=== PATIENT | female | born 1960 | race Caucasian/White ===

== ENCOUNTER → 2018-10-09 | Outpatient (CLI) | payer MEDICARE ==
[2018-10-09 12:09] LABS: Source, Urine Catheter
[2018-10-09 12:19] LABS: Bilirubin, Urine Neg (Neg); Blood, Urine Neg (Neg); Glucose Qualitative, Urine 4+ (Neg); Ketones, Urine Neg (Neg); Leukocyte Esterase, Urine Neg (Neg); Nitrite, Urine Neg (Neg); Protein, Urine 1+ (Neg); Urobilinogen, Urine NORM (Normal)
[2018-10-09 12:34] LABS: Appearance, Urine Clear (Clear); Color, Urine Yellow (P-Yellow)
[2018-10-13 15:06] LABS: HPV 16 Negative (Negative); HPV 18 Negative (Negative); HPV OTHER HR TYPES Negative (Negative)
== END | disposition home or self-care (01) ==
LOC: LAB 12:08 → LAB SHORT 12:08
PROVIDERS: Nurse Practitioner Women's Health
DX: R30.0 Dysuria (principal); Z80.52 Family history of malignant neoplasm of bladder; Z91.89 Other specified personal risk factors, not elsewhere classified
CPT/HCPCS: 87624; G0123

== ENCOUNTER → 2020-01-26 | Outpatient (CLI) | payer MEDICARE ==
[~2020-01-26] MED LIST: ASPIR 8181 M1 PO; CLOP75 PO; GABA300 PO; HYDROCODONE-AC1 EAC8 PO; NEURONTIN300 MG PO; PIOGLITAZONE HC45 MG PO; SULFAMETHOXAZO1 EAC1 PO
== END ==
LOC: LAB 18:14 → LAB SHORT 18:14
DX: N39.0 Urinary tract infection, site not specified (principal)
CPT/HCPCS: 87077; 87086; 87186

== ENCOUNTER 2020-01-28 16:04 | Inpatient (IN) | payer MEDICARE ==
[~2020-01-28] VITALS: Ht 160 cm; Wt 59.2 kg
[~2020-01-28 16:04] MED LIST changes: -HYDROCODONE-AC1 EAC8 PO; -NEURONTIN300 MG PO; -SULFAMETHOXAZO1 EAC1 PO
[2020-01-28 16:39] LABS: BASOPHILS ABSOLUTE AUTO 0.05 K/mm3 (0.00-0.23); BASOPHILS PERCENT AUTO 1 % (0-2); EOSINOPHILS ABSOLUTE AUTO 0.25 K/mm3 (0.00-0.68); EOSINOPHILS PERCENT AUTO 2 % (0-6); Hematocrit 45.6 % (33.0-51.0); Hemoglobin 14.9 g/dL (11.5-16.0); IMMATURE GRAN ABSOLUTE AUTO 0.05 K/mm3 (0.00-0.10); IMMATURE GRAN PERCENT AUTO 1 % (0-1); LYMPHOCYTES ABSOLUTE AUTO 2.49 K/mm3 (0.84-5.20); LYMPHOCYTES PERCENT AUTO 23 % (21-46); MONOCYTES ABSOLUTE AUTO 1.08 K/mm3 (0.16-1.47); MONOCYTES PERCENT AUTO 10 % (4-13); Mean Corpuscular HGB 30.7 pg (26.0-34.0); Mean Corpuscular HGB Conc 32.7 g/dL (31.5-36.5); Mean Corpuscular Volume 94 fL (80-100); Mean Platelet Volume 9.3 fL (9.1-12.4); NEUTROPHILS ABSOLUTE AUTO 6.78 K/mm3 (1.96-9.15); NEUTROPHILS PERCENT AUTO 63 % (41-73); Platelet Count 463 K/mm3 (150-400); RDW Coefficient Variation 12.5 % (11.7-14.2); RDW Standard Deviation 43.5 fL (35.1-46.3); Red Blood Cell Count 4.86 M/mm3 (3.80-5.20)
[2020-01-28 16:58] LABS: Alanine Aminotransfer (ALT/SGP 20 U/L (12-78); Albumin, Blood 3.2 g/dL (3.4-5.0); Albumin/Globulin Ratio 0.7 (0.8-1.8); Alk Phos 156 U/L (50-136); Anion Gap 6 mmol/L (6-16); Aspartate Aminotrans (AST/SGOT 11 U/L (12-37); Bilirubin, Total 0.2 mg/dL (0.1-1.0); Blood Urea Nitrogen 16 mg/dL (8-24); Bun/Creatinine Ratio 21.4 (12.0-20.0); CO2, Blood 27 mmol/L (21-32); Calcium, Blood 9.1 mg/dL (8.5-10.1); Chloride, Blood 104 mmol/L (98-108); Creatinine, Blood 0.75 mg/dL (0.40-1.00); Globulin, Blood 4.4 g/dL (2.2-4.0); Glomerular Filtration Rate >60 (60-); Glucose, Blood 200 mg/dL (70-99); Potassium, Blood 4.1 mmol/L (3.5-5.5); Sodium, Blood 137 mmol/L (136-145); Total Protein, Blood 7.6 g/dL (6.4-8.2)
[2020-01-28] MEDS ORDERED: NEURONTIN300 MG PO (20:55)
[2020-01-28] MEDS ORDERED: HYDROCODONE-AC1 EAC8 PO (20:55)
[2020-01-28] MEDS ORDERED: SULFAMETHOXAZO1 EAC1 PO (21:16)
--- NOTE | 2020-01-29 04:13 | NUR ---
SHIFT SUMMARY RECIEVED REPORT FROM [facility] @ 9155; ORIGINALLY CALLED FOR REPORT @ 2222. ARRIVED TO MEDICAL UNIT VIA WHEELCHAIR @ 2312; NO ASSISTANCE NEEDED UPON TRANSFER TO BED. ORIENTED TO ROOM AND CALL SYSTEM. A/O, ABLE TO MAKE NEEDS KNOWN. COOPERATIVE WITH CARE. ANSWERS QUESTIONS APPROPRIATELY. PICTURES TAKEN OF GANGRENOUS R GREAT TOE; PLACED IN CHART. NPO AFTER MIDNIGHT; AWARE OF SX IN AM. IV FLUIDS STARTED WITHOUT COMPLICATION. APPEARED TO REST MUCH WELL AFTER ADMISSION PROCESS COMPLETE. NO ACUTE CHANGES NOTED. VSS/AFEBRILE. BED REMAINED IN LOWEST POSITION. CALL LIGHT AND BELONGINGS WITHIN REACH. WCTM. REPORT TO ONCCOY BANG.
[2020-01-29 04:57] LABS: BASOPHILS ABSOLUTE AUTO 0.05 K/mm3 (0.00-0.23); BASOPHILS PERCENT AUTO 1 % (0-2); EOSINOPHILS ABSOLUTE AUTO 0.29 K/mm3 (0.00-0.68); EOSINOPHILS PERCENT AUTO 3 % (0-6); IMMATURE GRAN ABSOLUTE AUTO 0.04 K/mm3 (0.00-0.10); IMMATURE GRAN PERCENT AUTO 0 % (0-1); LYMPHOCYTES ABSOLUTE AUTO 2.55 K/mm3 (0.84-5.20); LYMPHOCYTES PERCENT AUTO 29 % (21-46); MONOCYTES PERCENT AUTO 10 % (4-13); Mean Corpuscular HGB 30.2 pg (26.0-34.0); Mean Corpuscular HGB Conc 31.8 g/dL (31.5-36.5); Mean Corpuscular Volume 95 fL (80-100); Mean Platelet Volume 9.5 fL (9.1-12.4); NEUTROPHILS ABSOLUTE AUTO 5.08 K/mm3 (1.96-9.15); NEUTROPHILS PERCENT AUTO 57 % (41-73); Platelet Count 402 K/mm3 (150-400); RDW Coefficient Variation 12.5 % (11.7-14.2); RDW Standard Deviation 43.7 fL (35.1-46.3); Red Blood Cell Count 4.63 M/mm3 (3.80-5.20); White Blood Cell Count 8.91 K/mm3 (4.00-11.30)
[2020-01-29 05:13] LABS: International Normalized Ratio 0.94; Prothrombin Time Results 10.1 Sec (9.7-11.5)
[2020-01-29 05:31] LABS: Anion Gap 6 mmol/L (6-16); Blood Urea Nitrogen 18 mg/dL (8-24); Bun/Creatinine Ratio 24.1 (12.0-20.0); CO2, Blood 25 mmol/L (21-32); Calcium, Blood 8.5 mg/dL (8.5-10.1); Chloride, Blood 106 mmol/L (98-108); Creatinine, Blood 0.75 mg/dL (0.40-1.00); Glomerular Filtration Rate >60 (60-); Glucose, Blood 178 mg/dL (70-99); Potassium, Blood 4.2 mmol/L (3.5-5.5); Sodium, Blood 137 mmol/L (136-145)
--- NOTE | 2020-01-29 07:05 | NUR ---
ASSUMED CARE OF PT- BEDSIDE REPORT COMPLETED WITH NIGHT RN. PT ALERT AND ORIENTED WITH A Hx OF A BRAIN BLEED D/T A RUPTURED ANURISIM, PT HAS CLIPS FROM THE REPAIR. PT HAS RIGHT GREATER TOE GANGREEN AND IS GOING TO SURGERY FOR AMPUTATION TODAY. RIGHT GREATER TOE IS BLACK AND PAINFUL TO TOUCH. PT STATES SHE HAS DIABETIC NEUROPATHY WITH N/T TO BLE. PT HAS NO C/O PAIN THIS MORNING PAIN WELL MANAGED WITH NORCO FROM LAST NIGHT.
--- NOTE | 2020-01-29 09:42 | NUR ---
PT SON WANTS DR TO BE AWARE THAT THE PT HAS BEEN EXPERIENCING INTERMITTENT BLURRED VISION FOR THE PAST ONE TO 2 MONTHS THAT HE IS AWARE OF. SON STATES THAT THEY GO "[place] [employer]" AND THE PT OCCASSIONALLY WILL SEE 4-5 SITESWHEN HE IS TRYING TO [employer]. THIS IS CONCERNING TO THEM GIVEN THE PT FATHER HAD BRAIN CANCER AND THE PT HAS A Hx OF LYMPHOMA. THE FAMILY IS REQUESTING A HEAD CT.
--- NOTE | 2020-01-29 10:32 | NUR ---
PT TO DAY SURGERY FOR SURGERY W/DR HARRINGTON. Pre-Op teaching done. Pt verbalizes understanding.
--- NOTE | 2020-01-29 13:06 | NUR ---
01/29/20 1306 [place] VERIFICATIONS: EDIT CHART.
--- NOTE | 2020-01-29 15:45 | NUR ---
PT STARTING TO FEEL SOME DULL PAIN AT THE SURGICAL SITE. ALL POST OP VITALS HAVE A SBP LESS THAN 100. NORCO WORKED WELL FOR THE PT PRIOR TO SURGERY. PT STATED AT HOME SHE CAN TAKE IT UP TO 3 TIMES DAILY SHE USUALLY CHOOSES TO SAVE IT FOR BEDTIME IT MAKES HER SLEEPY. CALLED DR KIRAN TO SEE IF THE NORCO ORDERED AT BEDTIME PRN CAN BE CHANGED TO TID NEEDED FOR PAIN. AWAITING A CALL BACK.
--- NOTE | 2020-01-29 16:39 | NUR ---
SPOKE TO DR KIRAN- PT HUMILIN CHANGED TO AC RATHER THAN AC/HS. PT IS VERY HUNGRY AND IS EXCITED FOR DINNER. DR VISITED BEDSIDE PAIN MEDICATION CHANGED TO TID NEEDED FOR PAIN AND PT WAS MEDICATED SOON MED WAS AVAILABLE
--- NOTE | 2020-01-29 17:47 | NUR ---
SHIFT SUMMARY- PT HAS HAD LOW SBP SINCE THE PROCEDURE. DR OLIVAS IS AWARE. PO PAIN MANAGEMENT GIVEN SEEMS TO WORK WELL FOR THE PT. SHE STATES SHE DRIFTS OFF TO SLEEP AND THEN SHE WAKES TO A SHARP PAIN, THAT GOES AWAY A SECOND LATER. PT IS ON POST OP VITALS UP TO Q4 HOURS AT THIS TIME. PT IS A SBA FOR TRANSFERS TO THE [facility] CURRENTLY UNTIL SHE IS MORE STEADY POST OP. WILL PASS ON IN BEDSIDE REPORT TO NIGHT RN.
--- NOTE | 2020-01-29 19:23 | NUR ---
PT HYPOTENSIVE POST OP VITALS SBP LESS THAN 100 CONSISTENTLY, 1844 VITALS SHOW BP 82/58 RECHECK WAS THE SAME. CALLED DR KIRAN AND [facility] VERBAL ORDER TO BOLUS 500ML AND TRANSFER THE PT IF HER PRESSURE DOES NOT INCREASE. PT SBP INCREASED TO 92. NIGHT RN TO CALL NIGHT AT THIS TIME. PT IS CRYING IN PAIN ONLY AVAILABLE MEDICATION IS IV NARCOTIC. WITH THE LOW PRESSURES PAIN IS GOING TO BE POORLY MANAGED. PO NORCO WAS EFFECTIVE BUT THE LOCAL IS WEARING OFF AND THE PAIN IS BECOMING MORE CONSISTENT.
[2020-01-29 20:04] LABS: BASOPHILS ABSOLUTE AUTO 0.04 K/mm3 (0.00-0.23); BASOPHILS PERCENT AUTO 0 % (0-2); EOSINOPHILS ABSOLUTE AUTO 0.25 K/mm3 (0.00-0.68); EOSINOPHILS PERCENT AUTO 2 % (0-6); Hematocrit 43.6 % (33.0-51.0); Hemoglobin 14.1 g/dL (11.5-16.0); IMMATURE GRAN ABSOLUTE AUTO 0.04 K/mm3 (0.00-0.10); IMMATURE GRAN PERCENT AUTO 0 % (0-1); LYMPHOCYTES ABSOLUTE AUTO 3.07 K/mm3 (0.84-5.20); LYMPHOCYTES PERCENT AUTO 26 % (21-46); MONOCYTES ABSOLUTE AUTO 0.99 K/mm3 (0.16-1.47); MONOCYTES PERCENT AUTO 8 % (4-13); Mean Corpuscular HGB 30.5 pg (26.0-34.0); Mean Corpuscular HGB Conc 32.3 g/dL (31.5-36.5); Mean Corpuscular Volume 94 fL (80-100); Mean Platelet Volume 9.3 fL (9.1-12.4); NEUTROPHILS ABSOLUTE AUTO 7.64 K/mm3 (1.96-9.15); NEUTROPHILS PERCENT AUTO 64 % (41-73); Platelet Count 405 K/mm3 (150-400); RDW Coefficient Variation 12.6 % (11.7-14.2); RDW Standard Deviation 43.8 fL (35.1-46.3); Red Blood Cell Count 4.62 M/mm3 (3.80-5.20); White Blood Cell Count 12.03 K/mm3 (4.00-11.30)
--- NOTE | 2020-01-29 20:58 | NUR ---
LOW BP DAYSHIFT NURSE REPORTED PT HAVING LOW BP, STSTOLIC IN THE 80'S, DAYSHIFT DOCTOR ORDERED 500ML BOLUS. DAYSHIFT NURSE WAS WORRIED ABOUT GINING PAIN MEDICATION DUE TO THIS. PT CRYING IN PAIN. AFTER BOLUS PT BP WAS IN THE 90'S SYSTOLIC, NIGHT DOCTOR ORDERED ANOTHER 1L BOLUS, REPEAT LABS TO CHECK FOR BLOOD VOLUME LOSS AND TO GIVE PAIN MEDICATION AND SEE WHAT HAPPENS. PT WAS LYING DOWN AND SLEEPING UPON BP RECHECK. PT PAIN WAS CONTROLLED BUT BP DECREASES TO HIGH 80'S SYSTOLIC. REPORTED TO DOCTOR THAT PT WAS ASYMPTOMATIC AND DIDNT WANT TO TRANSFER, STATED TO REPEAT VITALS Q2 AND TAKE IT FROM THERE. WILL CONTINUE TO MONITOR.
--- NOTE | 2020-01-30 04:09 | NUR ---
SHIFT SUMMARY ASSUMED CARE OF PT AT 1900. PT IS A/OX4, DENIES N/T IN EXTREMITES. HEART SOUNDS REGUALR, LUNG SOUNDS CLEAR EXCEPT FOR LL LUNG HAD CRACKLES, PT DENIES CP/SOB. SEE EARLIER NOTE ABOUT LOW BP. PT CONTINUES TO HAVE LOW BP DISCUSSED WITH DOCTOR THAT PT IS ASYMPTOMATIC AND WILL CONTINUE TO MONITOR. PT GIVEN 50MG FENTYAL FOR PAIN WITH RELEIF. CALL LIGHT IN REACH, BED IN LOWEST POSTION, WILL CONTINUE TO MONITOR UNTIL DAYSHIFT NURSE ARRIVES.
[2020-01-30 04:35] LABS: BASOPHILS ABSOLUTE AUTO 0.04 K/mm3 (0.00-0.23); BASOPHILS PERCENT AUTO 0 % (0-2); EOSINOPHILS ABSOLUTE AUTO 0.21 K/mm3 (0.00-0.68); EOSINOPHILS PERCENT AUTO 2 % (0-6); Hematocrit 41.4 % (33.0-51.0); Hemoglobin 13.2 g/dL (11.5-16.0); IMMATURE GRAN ABSOLUTE AUTO 0.04 K/mm3 (0.00-0.10); IMMATURE GRAN PERCENT AUTO 0 % (0-1); LYMPHOCYTES ABSOLUTE AUTO 2.91 K/mm3 (0.84-5.20); LYMPHOCYTES PERCENT AUTO 25 % (21-46); MONOCYTES ABSOLUTE AUTO 1.17 K/mm3 (0.16-1.47); MONOCYTES PERCENT AUTO 10 % (4-13); Mean Corpuscular HGB 30.1 pg (26.0-34.0); Mean Corpuscular HGB Conc 31.9 g/dL (31.5-36.5); Mean Corpuscular Volume 95 fL (80-100); Mean Platelet Volume 9.2 fL (9.1-12.4); NEUTROPHILS ABSOLUTE AUTO 7.26 K/mm3 (1.96-9.15); NEUTROPHILS PERCENT AUTO 63 % (41-73); Platelet Count 385 K/mm3 (150-400); RDW Coefficient Variation 12.3 % (11.7-14.2); Red Blood Cell Count 4.38 M/mm3 (3.80-5.20); White Blood Cell Count 11.63 K/mm3 (4.00-11.30)
[2020-01-30 04:54] LABS: Albumin, Blood 2.7 g/dL (3.4-5.0); Anion Gap 4 mmol/L (6-16); Blood Urea Nitrogen 11 mg/dL (8-24); Bun/Creatinine Ratio 18.3 (12.0-20.0); CO2, Blood 25 mmol/L (21-32); Calcium, Blood 8.4 mg/dL (8.5-10.1); Chloride, Blood 106 mmol/L (98-108); Glomerular Filtration Rate >60 (60-); Glucose, Blood 134 mg/dL (70-99); Phosphorus, Blood 3.5 mg/dL (2.5-4.9); Potassium, Blood 4.4 mmol/L (3.5-5.5); Sodium, Blood 135 mmol/L (136-145)
--- NOTE | 2020-01-30 14:45 | NUR ---
PATIENT LEFT AMA, FORM SIGNED. MESSAGE LEFT WITH DR. SIMON. PATIENT STATES THAT HER ANIMALS ARE INSIDE HER HOUSE AND HAS NOBODY TO CHECK ON THEM. SBP 95 AT TIME OF DC. PATIENT REPORTS THAT SHE WILL FOLLOW UP WITH DR. HARRINGTON AT HER APPT ON SATURDAY AND WILL HER PCP AT HER SATURDAY APPT.
== END 2020-01-30 14:40 | disposition left against medical advice (07) | DRG 256 ==
LOC: ER 16:04 → MEDS 16:05 → ER 16:05 → MEDS 16:05
PROVIDERS: Emergency Medicine; Internal Medicine; Nurse Practitioner Acute Care; Podiatrist; ADMIT Family Medicine
PROC: 0Y6P0Z2 Detachment at Right 1st Toe, Mid, Open Approach (ICD-10-PCS; principal; 2020-01-29 08:30)
DX: E11.52 Type 2 diabetes mellitus with diabetic peripheral angiopathy with gangrene (principal); I96 Gangrene, not elsewhere classified; N39.0 Urinary tract infection, site not specified; R65.10 Systemic inflammatory response syndrome (SIRS) of non-infectious origin without acute organ dysfunction; I95.9 Hypotension, unspecified; F17.210 Nicotine dependence, cigarettes, uncomplicated; E11.42 Type 2 diabetes mellitus with diabetic polyneuropathy; I25.10 Atherosclerotic heart disease of native coronary artery without angina pectoris; Z95.1 Presence of aortocoronary bypass graft
CPT/HCPCS: 36415; 73620; 80048; 80053; 80069; 82947; 85025; 85610; 93005; 93010; 99285-25; A9270-GY; J0690; J1815; J2250; J2704; J3010; J7030; J7040; J7120; U0002

== ENCOUNTER → 2020-05-05 | Outpatient (CLI) | payer MEDICARE ==
[~2020-05-05] MED LIST changes: +HYDROCODONE-AC1 EAC8 PO; +NEURONTIN300 MG PO; +SULFAMETHOXAZO1 EAC1 PO
== END ==
LOC: LAB SRC 14:51 → LAB SHORT 14:51
DX: N39.0 Urinary tract infection, site not specified (principal)
CPT/HCPCS: 87077; 87086; 87186